=== PATIENT | female | born 1975 | race Caucasian/White ===

== ENCOUNTER → 2023-11-06 06:18 | Day surgery (SDC) | payer OTHER, SELFPAY | LOC: GI 06:18 | PROVIDERS: ATTENDING PHYSICIAN Surgery | DX: Z12.11 Encounter for screening for malignant neoplasm of colon (principal); K57.30 Diverticulosis of large intestine without perforation or abscess without bleeding | CPT/HCPCS: G0121 ==

== ENCOUNTER → 2023-11-25 18:04 | Outpatient (REF) | payer OTHER, SELFPAY | LOC: CLAB 18:04 | PROVIDERS: ATTENDING PHYSICIAN Surgery | DX: A63.0 Anogenital (venereal) warts (principal) | CPT/HCPCS: 88305 ==

== ENCOUNTER → 2024-04-23 12:52 | Outpatient (REF) | payer OTHER, SELFPAY | LOC: RCS 12:52 | PROVIDERS: ATTENDING PHYSICIAN Internal Medicine Interventional Cardiology; FAMILY PHYSICIAN Family Medicine | DX: R00.2 Palpitations (principal); I34.0 Nonrheumatic mitral (valve) insufficiency; I47.19 Other supraventricular tachycardia | CPT/HCPCS: 93306 ==

== ENCOUNTER 2024-11-10 01:21 | Emergency (ER) | payer OTHER, SELFPAY ==
[2024-11-10 01:29] VITALS: BP 117/72
--- NOTE | 2024-11-10 01:37 | ED.GENMED ---
History of Present Illness
General
Chief Complaint: Post Operative Problem(s)
Source: patient and ambulance crew
Exam Limitations: none
Time Seen by Provider: 11/10/24 01:24
Nursing documentation reviewed up to this point in time: agreed with
History of Present Illness
History of Present Illness:
49-year-old female status post liposuction about 12 hours ago at an outpatient center [place] recovering at home well without any pain woke up in a pool blood is coming from robotic incisions, no chest pain or shortness of breath no fever chills
her pain is well-controlled, she has had this procedure before sedation never had this degree of bleeding
Past History
Past History
ED Past Medical History: Arrthythmia (Atrial tachycardia)
ED Past Surgical History: Other (Breast reduction)
Social History
Tobacco: Non-smoker
Alcohol: Occasional
Drug: None
Personal:
Living: with family
Employment: Employed
Review of Systems
Review of Systems
All Other Systems: Not applicable
Constitutional: Denies fever or fatigue
EENT: Reports no symptoms
Respiratory: Reports no symptoms; Denies trouble breathing
ABD/GI: Reports no symptoms
Neurological: Reports no symptoms
Hematologic/Lymphatic: Reports bleeding
Phy Exam
Physical Exam
Physical Exam:
Physical Exam
General: no apparent distress, not acutely ill
Neck: No pallor
Heart: Regular
Lungs: no acute respiratory distress.
Abdomen: Not tender
Neuro: alert and oriented. no focal neurological deficits
Skin: Ecchymosis around her buttock, 3 stab incision seen one of the gluteal cleft to either side of her lateral buttocks, the wound at the gluteal cleft appears to have some fresh hematoma no active bleeding
Psychiatric: well kept. interactive and cooperative
Extremities: no edema.
Course
Orders/Labs/Results
Orders:
Orders
11/10/24 01:40
Complete Blood Count/With Diff Urgent
Abnormal Lab Results
11/10/24
01:40
WBC 15.6 H 10^3/uL
(4.8-10.8)
RBC 3.27 L 10^6/uL
(4.20-5.40)
Hgb 10.1 L g/dL
(12.0-16.0)
Hct 30.1 L %
(37.0-47.0)
MPV 10.8 H fL
(7.4-10.4)
Abs Immat Gran (auto) 0.1 H 10^3/uL
(0-0.05)
Absolute Neuts (auto) 13.9 H 10^3/uL
(1.4-6.5)
Absolute Lymphs (auto) 0.4 L 10^3/uL
(1.2-3.4)
Absolute Monos (auto) 1.2 H 10^3/uL
(0.1-0.6)
Neutrophils % 89.0 H %
(42.2-75.2)
Lymphocytes % 2.7 L %
(20.5-51.1)
11/10/24 01:40
Vital Signs
Initial and Last Documented VS:
Initial Vital Signs
Temp Pulse Resp BP Pulse Ox
98.7 F 84 18 117/72 100
11/10/24 01:29 11/10/24 01:29 11/10/24 01:29 11/10/24 01:29 11/10/24 01:29
Last Documented Vital Signs
Temp Pulse Resp BP Pulse Ox
98.7 F 84 18 117/72 100
11/10/24 01:29 11/10/24 01:29 11/10/24 01:29 11/10/24 01:11/10/24 01:29
Procedures
Other
Indication for procedure:: Bleeding wound
Procedure completed by: Ethan
Consent form signed: No
Additional Procedure:
Local anesthetic 2 cc of 1% lidocaine with epinephrine #1 4-0 Vicryl Rapide placed
MDM/Problems Addressed
Differential Diagnosis Includes:
Postop bleeding seroma hematoma
*Critical Care Note
Total Time (30-74mins, 75-104mins- exclusive of procedures): Not Applicable
Update Note
Update Note:
Update H&H noted, looks like some bleeding from her wound has stopped, there is some resolving hematoma will asked the nurse to place a pressure dressing
Reviewed with patient looks like all her wounds were sutured with the exception of the one this bleeding perhaps a suture popped, Vicryl suture placed
ED Attending Note
-
Portions of this chart may have been created with voice recognition software.� Occasional wrong word or��sound alike� substitutions may have occurred due to the inherent limitations of voice recognition software.
Discharge Plan
Departure
Patient Disposition: Home (Routine Discharge)
Date of Disposition: 11/10/24
Time of Disposition: 03:55
Patient with high blood pressure during this ER visit?: No
Condition: Good
Discharge Problem:
Postoperative hemorrhage
Instructions: Bleeding After Surgery
Prescriptions:
No Action
metoprolol succinate 50 mg Tablet Extended Release 24 Hr
50 mg PO DAILY
trazodone 100 mg Tablet
100 mg PO HS PRN (Reason: sleep)
Referrals:
Juan C Antoine DO [Family Provider] -
Activity Restrictions/Additional Instructions:
Call your surgeon this morning to discuss your symptoms
Interventions
Interventions:
*Risk Screen - Suicide Last Done: 11/10/24 01:29
*General Assessment Last Done: 11/10/24 01:29
*Neglect/Abuse Screening Last Done: 11/10/24 01:29
*ED COVID-19 Vaccine History Last Done: 11/10/24 01:29
Discharge Date and Time
Print Language: [id number]
[2024-11-10 01:49] LABS: % Basophils 0.1 % (0-2); % Immature Granulocytes 0.4 % (0-0.5); % Lymphocytes 2.7 % (20.5-51.1); % Monocytes 7.8 % (1.7-9.3); Absolute Immature Granulocytes 0.1 10^3/uL (0-0.05); Absolute Lymphocytes 0.4 10^3/uL (1.2-3.4); Absolute Monocytes 1.2 10^3/uL (0.1-0.6); Absolute Neutrophils 13.9 10^3/uL (1.4-6.5); Hematocrit 30.1 % (37.0-47.0); Hemoglobin 10.1 g/dL (12.0-16.0); Mean Corp Hgb Conc. 33.6 g/dL (33.0-37.0); Mean Corpuscular Hgb 30.9 pg (27.0-31.0); Mean Platelet Volume 10.8 fL (7.4-10.4); Nucleated Red Blood Cells % 0 %; Platelet Count 215 10^3/uL (130-400); Red Blood Cell Count 3.27 10^6/uL (4.20-5.40); White Blood Cell Count 15.6 10^3/uL (4.8-10.8)
[2024-11-10 02:00] VITALS: BP 110/62
[2024-11-10 04:13] VITALS: BP 114/70
== END 2024-11-10 04:15 | disposition home or self-care (01) ==
LOC: EMR 01:21
PROVIDERS: EMERGENCY PHYSICIAN Emergency Medicine; FAMILY PHYSICIAN Family Medicine
DX: L76.22 Postprocedural hemorrhage of skin and subcutaneous tissue following other procedure (principal); Y83.8 Other surgical procedures as the cause of abnormal reaction of the patient, or of later complication, without mention of misadventure at the time of the procedure
CPT/HCPCS: 12001; 99283; 85025